=== PATIENT | female | born 1940 | race Caucasian/White ===

== ENCOUNTER 2024-07-30 20:14 | Inpatient (IN) | payer MEDICARE, SELFPAY ==
[2024-07-30] MEDS ORDERED: Ipratropium/Albuterol 3 ML NEB NEB PRN (23:56)
[2024-07-30] MEDS ORDERED: Ondansetron ODT 4 MG TAB PO PRN (23:56)
[2024-07-30] MEDS ORDERED: Ondansetron PF 4 MG/2 ML Vial IVP PRN (23:56)
[2024-07-30] MEDS ORDERED: Acetaminophen 650 MG Suppository PR PRN (23:56)
[2024-07-31 00:41] VITALS: BMI 20.5
[2024-07-31 00:43] LABS: #Basophils 0.04 10x3/uL (0.0-0.2); %Basophils 1.1 % (0.0-1.0); %Eosinophils 3.4 % (0.0-10.0); %Lymphocytes 12.7 % (21.0-51.0); %Neutrophils 62.7 % (42.0-75.0); Hematocrit 38.6 % (36.0-47.0); Hemoglobin 11.9 g/dL (12.0-16.0); Mean Corpuscular HGB CONC 30.8 g/dL (32.0-36.0); Mean Corpuscular Hemoglobin 29.2 pg (27.0-31.0); Mean Corpuscular Volume 94.8 fL (78.0-98.0); Mean Platelet Volume 9.7 fL (7.4-10.4); Platelet Count 182 10x3/uL (130-400); RBC Distribution Width 14.9 % (11.5-14.5); Red Blood Cell (RBC) Count 4.07 mill/uL (4.20-5.40)
[2024-07-31 01:02] LABS: ALT (SGPT) 18 U/L (8-55); AST (SGOT) 45 U/L (5-34); Albumin 3.5 g/dL (3.4-4.8); Alkaline Phosphatase 67 U/L (40-110); Anion Gap 14 mmol/L (10-20); BUN (Urea Nitrogen) 27 mg/dL (9.8-20.1); Bilirubin, Total 0.4 mg/dL (0.2-1.2); Calc. Creatinine Clearance 25 mL/min (70-130); Carbon Dioxide 24 mmol/L (23-31); Chloride 108 mmol/L (98-107); Estimated GFR 42; Globulin 2.8 g/dL (2.4-3.5); Glucose 111 mg/dL (83-110); Potassium 4.2 mmol/L (3.5-5.1); Protein, Total 6.3 g/dL (5.8-8.1); Sodium 142 mmol/L (136-145)
[2024-07-31] MEDS: Acetaminophen 325 MG TAB PO SCH (01:10)
[2024-07-31 01:57] LABS: Legionella Urinary Ag Negative (Negative)
[2024-07-31 01:58] LABS: Strep pneumo Urine Ag NEGATIVE (NEGATIVE)
[2024-07-31] MEDS ORDERED: Amlodipine 10 MG TAB PO SCH (09:00)
[2024-07-31] MEDS ORDERED: cefTRIAXone\\ROCEPHIN 1 GM in Sodium Chloride 0.9% 100 ML IVPB SCH (09:00)
[2024-07-31] MEDS: Doxycycline 100 MG CAP PO SCH (09:02)
[2024-07-31] MEDS: Apixaban 2.5 MG TAB PO SCH (09:02)
[2024-07-31] MEDS: Famotidine 20 MG TAB PO SCH (09:03)
[2024-07-31] MEDS: Amlodipine 5 MG TAB PO SCH (09:03)
[2024-07-31] MEDS: Venlafaxine HCl XR 150 MG CAP PO SCH (09:03)
[2024-07-31] MEDS: Gabapentin 300 MG CAP PO SCH (09:03)
[2024-07-31] MEDS: Cyanocobalamin (Vitamin B-12) 1,000 MCG TAB PO SCH (09:03)
[2024-07-31] MEDS: Famotidine/PF 20 mg/2ml Vial SLOW IVP SCH (09:04)
[2024-07-31] MEDS: Lactated Ringer's 1,000 ML IV SCH (14:53)
[2024-07-31 19:18] VITALS: BMI 20.5
[2024-07-31] MEDS: buPROPion 75 MG TAB PO SCH (21:08)
[2024-07-31] MEDS: Pantoprazole DR 40 MG TAB PO SCH (21:08)
[2024-08-01] MEDS: Losartan 25 MG TAB PO SCH (08:49)
[2024-08-01] MEDS: Multivit, Therapeutic 1 TAB PO SCH (08:49)
[2024-08-01] MEDS: Baclofen 10 MG TAB PO SCH (08:50)
[2024-08-01] MEDS: Floranex 1 GM Packet PO SCH (08:51)
[2024-08-01] MEDS ORDERED: NIACINAMIDE PO SCH (09:00)
[2024-08-01] MEDS ORDERED: CRANBERRY FRUIT EXTRACT 425 MG PO SCH (09:00)
[2024-08-01 10:51] LABS: #Basophils 0.03 10x3/uL (0.0-0.2); %Basophils 0.8 % (0.0-1.0); %Eosinophils 3.9 % (0.0-10.0); %Lymphocytes 11.9 % (21.0-51.0); %Monocytes 16.9 % (0.0-10.0); %Neutrophils 63.7 % (42.0-75.0); Hematocrit 37.6 % (36.0-47.0); Hemoglobin 11.6 g/dL (12.0-16.0); Mean Corpuscular HGB CONC 30.9 g/dL (32.0-36.0); Mean Corpuscular Hemoglobin 28.7 pg (27.0-31.0); Mean Corpuscular Volume 93.1 fL (78.0-98.0); Platelet Count 172 10x3/uL (130-400); RBC Distribution Width 15.1 % (11.5-14.5); Red Blood Cell (RBC) Count 4.04 mill/uL (4.20-5.40)
[2024-08-01 11:10] LABS: Anion Gap 13 mmol/L (10-20); BUN (Urea Nitrogen) 22 mg/dL (9.8-20.1); Calc. Creatinine Clearance 21 mL/min (70-130); Calcium 9.3 mg/dL (7.8-10.44); Carbon Dioxide 27 mmol/L (23-31); Chloride 105 mmol/L (98-107); Estimated GFR 34; Glucose 144 mg/dL (83-110); Potassium 3.7 mmol/L (3.5-5.1); Sodium 141 mmol/L (136-145)
[2024-08-01] MEDS: Lactated Ringer's 1,000 ML IV SCH (18:08)
[2024-08-01] MEDS: LevoFLOXacin 500 mg/D5W 500 MG in Premix 1 BAG IVPB SCH (20:13)
[2024-08-02 04:43] LABS: Anion Gap 12 mmol/L (10-20); BUN (Urea Nitrogen) 26 mg/dL (9.8-20.1); Calc. Creatinine Clearance 27 mL/min (70-130); Calcium 9.7 mg/dL (7.8-10.44); Carbon Dioxide 26 mmol/L (23-31); Chloride 106 mmol/L (98-107); Estimated GFR 46; Glucose 74 mg/dL (83-110); Potassium 3.6 mmol/L (3.5-5.1); Sodium 140 mmol/L (136-145)
[2024-08-02 04:56] LABS: Hematocrit 35.3 % (36.0-47.0); Hemoglobin 11.1 g/dL (12.0-16.0); Mean Corpuscular HGB CONC 31.4 g/dL (32.0-36.0); Mean Corpuscular Hemoglobin 28.8 pg (27.0-31.0); Mean Corpuscular Volume 91.7 fL (78.0-98.0); Mean Platelet Volume 10.1 fL (7.4-10.4); Platelet Count 159 10x3/uL (130-400); RBC Distribution Width 15.1 % (11.5-14.5); Red Blood Cell (RBC) Count 3.85 mill/uL (4.20-5.40)
[2024-08-02 05:45] LABS: Band 5 % (5-11); Eosinophils 3 % (0-10); Lymphocytes 14 % (21-51); Microcytosis SLIGHT = 6-15 cells HPF (0-5); Monocytes 8 % (0-10); Neutrophil 67 % (42-75); Platelet Adequacy Comment Platelets Normal; Polychromasia SLIGHT = 2-3 cells HPF (0-2)
[2024-08-02] MEDS ORDERED: ANTIBIOTICS IVPB PRN (13:19)
[2024-08-03 07:04] LABS: Anion Gap 11 mmol/L (10-20); BUN (Urea Nitrogen) 26 mg/dL (9.8-20.1); Calc. Creatinine Clearance 27 mL/min (70-130); Calcium 9.1 mg/dL (7.8-10.44); Carbon Dioxide 29 mmol/L (23-31); Chloride 104 mmol/L (98-107); Estimated GFR 45; Glucose 87 mg/dL (83-110); Potassium 3.4 mmol/L (3.5-5.1); Sodium 141 mmol/L (136-145)
[2024-08-03 07:21] LABS: Hematocrit 35.9 % (36.0-47.0); Hemoglobin 11.3 g/dL (12.0-16.0); Mean Corpuscular HGB CONC 31.5 g/dL (32.0-36.0); Mean Corpuscular Hemoglobin 28.8 pg (27.0-31.0); Mean Corpuscular Volume 91.3 fL (78.0-98.0); Mean Platelet Volume 9.9 fL (7.4-10.4); Platelet Count 149 10x3/uL (130-400); RBC Distribution Width 15.3 % (11.5-14.5); Red Blood Cell (RBC) Count 3.93 mill/uL (4.20-5.40)
[2024-08-03 08:16] LABS: Band 7 % (5-11); Eosinophils 6 % (0-10); Large Platelets 3.7 % (0-5); Lymphocytes 10 % (21-51); Metamyelocyte 2 % (0-0); Monocytes 14 % (0-10); Neutrophil 59 % (42-75); Platelet Adequacy Comment Platelets Normal; RBC Morphology Within Normal Limits; Reactive Lymphocytes 1 % (0-10)
[2024-08-03] MEDS: Potassium Bicarbonate/Cit Ac 20 MEQ TAB PO SCH (13:10)
[2024-08-04 05:07] LABS: Hematocrit 35.8 % (36.0-47.0); Hemoglobin 11.2 g/dL (12.0-16.0); Mean Corpuscular HGB CONC 31.3 g/dL (32.0-36.0); Mean Corpuscular Hemoglobin 27.9 pg (27.0-31.0); Mean Corpuscular Volume 89.3 fL (78.0-98.0); Mean Platelet Volume 10.6 fL (7.4-10.4); Platelet Count 153 10x3/uL (130-400); RBC Distribution Width 15.2 % (11.5-14.5); Red Blood Cell (RBC) Count 4.01 mill/uL (4.20-5.40)
[2024-08-04 05:59] LABS: Band 4 % (5-11); Eosinophils 1 % (0-10); Hypochromia SLIGHT = 6-15 cells HPF (0-5); Large Platelets 3.8 % (0-5); Lymphocytes 8 % (21-51); Metamyelocyte 3 % (0-0); Monocytes 17 % (0-10); Myelocyte 2 % (0-0); Neutrophil 63 % (42-75); Platelet Adequacy Comment Platelets Normal; Smudge Cells 18.3 %
[2024-08-04 06:10] LABS: Anion Gap 11 mmol/L (10-20); BUN (Urea Nitrogen) 26 mg/dL (9.8-20.1); Calc. Creatinine Clearance 23 mL/min (70-130); Calcium 8.9 mg/dL (7.8-10.44); Carbon Dioxide 29 mmol/L (23-31); Chloride 103 mmol/L (98-107); Estimated GFR 37; Glucose 95 mg/dL (83-110); Potassium 3.8 mmol/L (3.5-5.1); Sodium 139 mmol/L (136-145)
[2024-08-04] MEDS: Furosemide 40 MG (4 mL) VIAL SLOW IVP SCH (14:25)
[2024-08-05 06:05] LABS: Hematocrit 38.5 % (36.0-47.0); Hemoglobin 12.2 g/dL (12.0-16.0); Mean Corpuscular HGB CONC 31.7 g/dL (32.0-36.0); Mean Corpuscular Hemoglobin 28.9 pg (27.0-31.0); Mean Corpuscular Volume 91.2 fL (78.0-98.0); Mean Platelet Volume 10.4 fL (7.4-10.4); Platelet Count 163 10x3/uL (130-400); RBC Distribution Width 15.6 % (11.5-14.5); Red Blood Cell (RBC) Count 4.22 mill/uL (4.20-5.40)
[2024-08-05 06:12] LABS: Anion Gap 14 mmol/L (10-20); BUN (Urea Nitrogen) 37 mg/dL (9.8-20.1); Calc. Creatinine Clearance 20 mL/min (70-130); Calcium 9.1 mg/dL (7.8-10.44); Carbon Dioxide 31 mmol/L (23-31); Chloride 100 mmol/L (98-107); Estimated GFR 32; Glucose 96 mg/dL (83-110); Potassium 3.5 mmol/L (3.5-5.1); Sodium 141 mmol/L (136-145)
[2024-08-05 06:52] LABS: Anisocytosis SLIGHT = 6-15 cells HPF (0-5); Band 3 % (5-11); Eosinophils 2 % (0-10); Lymphocytes 10 % (21-51); Macrocytosis SLIGHT = 6-15 cells HPF (0-5); Metamyelocyte 3 % (0-0); Monocytes 14 % (0-10); Myelocyte 1 % (0-0); Neutrophil 61 % (42-75); Platelet Adequacy Comment Platelets Normal; Polychromasia SLIGHT = 2-3 cells HPF (0-2); Reactive Lymphocytes 4 % (0-10)
[2024-08-05 08:05] VITALS: BP 141/76; TEMP 97.8
[2024-08-05] MEDS ORDERED: LevoFLOXacin 500 MG TAB PO SCH (21:00)
== END 2024-08-05 13:33 | disposition home or self-care (01) | DRG 193 ==
LOC: T4-A 23:40
PROVIDERS: ADMIT Student in an Organized Health Care Education/Training Program; ATTEND Internal Medicine
DX: J18.9 Pneumonia, unspecified organism (principal); J96.01 Acute respiratory failure with hypoxia; I48.91 Unspecified atrial fibrillation; M19.90 Unspecified osteoarthritis, unspecified site; I12.9 Hypertensive chronic kidney disease with stage 1 through stage 4 chronic kidney disease, or unspecified chronic kidney disease; G25.3 Myoclonus; M62.838 Other muscle spasm; Z88.1 Allergy status to other antibiotic agents; Z79.01 Long term (current) use of anticoagulants
CPT/HCPCS: 36415; 71045; 80048; 80053; 83880; 84145; 85025; 87449; 87899; J1940; J1956; J7120

== ENCOUNTER 2024-08-07 20:09 | Inpatient (IN) | payer MEDICARE ==
[2024-08-07 21:13] LABS: Hematocrit 38.1 % (36.0-47.0); Hemoglobin 11.8 g/dL (12.0-16.0); Mean Corpuscular Hemoglobin 29.1 pg (27.0-31.0); Mean Corpuscular Volume 94.1 fL (78.0-98.0); Mean Platelet Volume 10.2 fL (7.4-10.4); Platelet Count 151 10x3/uL (130-400); RBC Distribution Width 16.2 % (11.5-14.5); Red Blood Cell (RBC) Count 4.05 mill/uL (4.20-5.40)
[2024-08-07 21:34] LABS: Band 13 % (5-11); Eosinophils 3 % (0-10); Large Platelets 4.9 % (0-5); Lymphocytes 12 % (21-51); Macrocytosis SLIGHT = 6-15 cells HPF (0-5); Monocytes 15 % (0-10); Neutrophil 57 % (42-75); Platelet Adequacy Comment Platelets Normal; Polychromasia SLIGHT = 2-3 cells HPF (0-2); Smudge Cells 16.5 %; Tear Drops SLIGHT = 2-5 cells HPF (0-1)
[2024-08-07 21:35] LABS: ALT (SGPT) 19 U/L (8-55); AST (SGOT) 48 U/L (5-34); Albumin 3.4 g/dL (3.4-4.8); Alkaline Phosphatase 79 U/L (40-110); Anion Gap 22 mmol/L (10-20); BUN (Urea Nitrogen) 57 mg/dL (9.8-20.1); Bilirubin, Total 0.3 mg/dL (0.2-1.2); Calc. Creatinine Clearance 0 mL/min (70-130); Carbon Dioxide 22 mmol/L (23-31); Chloride 102 mmol/L (98-107); Estimated GFR 22; Globulin 2.7 g/dL (2.4-3.5); Glucose 122 mg/dL (83-110); Potassium 3.5 mmol/L (3.5-5.1); Protein, Total 6.1 g/dL (5.8-8.1); Sodium 142 mmol/L (136-145)
[2024-08-07 21:37] LABS: Troponin I 0.023 ng/mL (< 0.028)
[2024-08-08 00:08] VITALS: BMI 22.2
[2024-08-08] MEDS: Apixaban 2.5 MG TAB PO SCH ×2 (00:37→08:36)
[2024-08-08] MEDS: Sodium Chloride 0.9% 1,000 ML IV SCH (00:37)
[2024-08-08 04:47] LABS: #Basophils 0.06 10x3/uL (0.0-0.2); %Basophils 1.1 % (0.0-1.0); %Eosinophils 3.7 % (0.0-10.0); %Monocytes 19.6 % (0.0-10.0); %Neutrophils 60.4 % (42.0-75.0); Hematocrit 34.4 % (36.0-47.0); Hemoglobin 10.8 g/dL (12.0-16.0); Mean Corpuscular HGB CONC 31.4 g/dL (32.0-36.0); Mean Corpuscular Volume 92.2 fL (78.0-98.0); Mean Platelet Volume 10.6 fL (7.4-10.4); Platelet Count 153 10x3/uL (130-400); Red Blood Cell (RBC) Count 3.73 mill/uL (4.20-5.40)
[2024-08-08 05:36] LABS: Anion Gap 17 mmol/L (10-20); BUN (Urea Nitrogen) 57 mg/dL (9.8-20.1); Calc. Creatinine Clearance 16 mL/min (70-130); Calcium 8.7 mg/dL (7.8-10.44); Carbon Dioxide 27 mmol/L (23-31); Chloride 104 mmol/L (98-107); Estimated GFR 23; Glucose 81 mg/dL (83-110); Potassium 3.4 mmol/L (3.5-5.1); Sodium 145 mmol/L (136-145)
[2024-08-08] MEDS: Baclofen 10 MG TAB PO SCH (13:18)
[2024-08-08] MEDS: Amlodipine 10 MG TAB PO SCH (13:18)
[2024-08-08] MEDS: Venlafaxine HCl XR 150 MG CAP PO SCH (13:19)
[2024-08-08] MEDS: Gabapentin 300 MG CAP PO SCH ×2 (13:19→21:22)
[2024-08-08] MEDS: Saccharomyces boulardii 250 MG CAP PO SCH (13:20)
[2024-08-08] MEDS: Cyanocobalamin (Vitamin B-12) 1,000 MCG TAB PO SCH (13:20)
[2024-08-08] MEDS: buPROPion 75 MG TAB PO SCH ×2 (13:21→21:23)
[2024-08-08 13:50] LABS: Bacteria/HPF None Seen HPF (None Seen); Bilirubin Negative (Negative); Blood, Urine Negative (Negative); CAUTI Indications for Culture Alt mental st,lethar; Clarity Clear (Clear); Glucose, Urine (Dipstick) Normal (Negative); Ketone, Urine Negative (Negative); Leukocyte Negative Leu/uL (Negative); Nitrite Negative (Negative); Protein, Urine (Dipstick) 30 mg/dL (Neg-Trace); RBC/HPF None Seen HPF (0-3); Specific Gravity, Urine 1.014 (1.002-1.036); Squamous Epithelial None Seen HPF (0-3); Urobilinogen Normal mg/dL (Less than 2); WBC/HPF 0-3 HPF (0-3)
[2024-08-08 14:11] LABS: Urine Culture Reflex No No
[2024-08-08] MEDS: Acetaminophen 325 MG TAB PO PRN (21:21)
[2024-08-09 04:58] LABS: Anion Gap 11 mmol/L (10-20); BUN (Urea Nitrogen) 38 mg/dL (9.8-20.1); Calc. Creatinine Clearance 26 mL/min (70-130); Calcium 8.7 mg/dL (7.8-10.44); Carbon Dioxide 28 mmol/L (23-31); Chloride 109 mmol/L (98-107); Estimated GFR 39; Glucose 79 mg/dL (83-110); Potassium 3.8 mmol/L (3.5-5.1); Sodium 144 mmol/L (136-145)
[2024-08-09 05:09] LABS: Hematocrit 32.8 % (36.0-47.0); Hemoglobin 10.5 g/dL (12.0-16.0); Mean Corpuscular Hemoglobin 28.5 pg (27.0-31.0); Mean Corpuscular Volume 89.1 fL (78.0-98.0); Mean Platelet Volume 9.8 fL (7.4-10.4); Platelet Count 146 10x3/uL (130-400); RBC Distribution Width 16.3 % (11.5-14.5); Red Blood Cell (RBC) Count 3.68 mill/uL (4.20-5.40)
[2024-08-09 06:45] LABS: Band 5 % (5-11); Eosinophils 4 % (0-10); Lymphocytes 16 % (21-51); Macrocytosis SLIGHT = 6-15 cells HPF (0-5); Metamyelocyte 1 % (0-0); Monocytes 12 % (0-10); Neutrophil 63 % (42-75); Platelet Adequacy Comment Platelets Normal; Polychromasia SLIGHT = 2-3 cells HPF (0-2); Smudge Cells 9.7 %
[2024-08-09] MEDS: Amlodipine 10 MG TAB PO SCH (08:17)
[2024-08-09] MEDS: Venlafaxine HCl XR 150 MG CAP PO SCH (08:18)
[2024-08-09] MEDS: Saccharomyces boulardii 250 MG CAP PO SCH (08:19)
[2024-08-09] MEDS: Baclofen 10 MG TAB PO SCH (08:19)
[2024-08-09] MEDS: Cyanocobalamin (Vitamin B-12) 1,000 MCG TAB PO SCH (08:19)
[2024-08-09] MEDS: Multivitamin W/ Minerals 1 TAB PO SCH (08:34)
[2024-08-09 08:36] VITALS: TEMP 98.3
[2024-08-09 11:08] VITALS: BP 160/80
[2024-08-10] MEDS ORDERED: FLU (Fluad Triv) TS24-25 (65UP)/MF59C/PF 45 MCG/0.5 ML Syringe IM ONE (09:00)
== END 2024-08-09 11:55 | disposition home or self-care (01) | DRG 682 ==
LOC: ERS 20:09 → 2SW 22:53 → OBSVTOIN 08-08 09:14
PROVIDERS: ADMIT Internal Medicine; ATTEND Family Medicine
DX: N17.9 Acute kidney failure, unspecified (principal); G93.41 Metabolic encephalopathy; J96.01 Acute respiratory failure with hypoxia; I48.20 Chronic atrial fibrillation, unspecified; E87.6 Hypokalemia; Z79.01 Long term (current) use of anticoagulants; Z88.8 Allergy status to other drugs, medicaments and biological substances; N18.30 Chronic kidney disease, stage 3 unspecified; I12.9 Hypertensive chronic kidney disease with stage 1 through stage 4 chronic kidney disease, or unspecified chronic kidney disease; M19.90 Unspecified osteoarthritis, unspecified site; D63.1 Anemia in chronic kidney disease; Z90.710 Acquired absence of both cervix and uterus; Z90.49 Acquired absence of other specified parts of digestive tract; Z98.890 Other specified postprocedural states; Z82.49 Family history of ischemic heart disease and other diseases of the circulatory system; Z79.899 Other long term (current) drug therapy
CPT/HCPCS: 36415; 70450; 71045; 80048; 80053; 81001; 83880; 84484; 85025; 93005; 93306; G0378; J7030

== ENCOUNTER 2024-09-03 08:48 | Inpatient (IN) | payer MEDICARE ==
[2024-09-03] MEDS ORDERED: Ondansetron PF 4 MG/2 ML Vial IVP PRN (11:12)
[2024-09-03] MEDS ORDERED: Senokot S 8.6-50 MG TAB PO PRN (11:12)
[2024-09-03 12:00] LABS: Albumin 2.2 g/dL (3.4-4.8); Anion Gap 14 mmol/L (10-20); BUN (Urea Nitrogen) 23 mg/dL (9.8-20.1); BUN/Creatinine Ratio 11.62; Calc. Creatinine Clearance 23 mL/min (70-130); Calcium 8.6 mg/dL (7.8-10.44); Carbon Dioxide 19 mmol/L (23-31); Chloride 107 mmol/L (98-107); Estimated GFR 25; Glucose 63 mg/dL (83-110); Phosphorus 3.6 mg/dL (2.3-4.7); Potassium 3.9 mmol/L (3.5-5.1); Sodium 136 mmol/L (136-145)
[2024-09-03] MEDS: FLU (Fluad Triv) TS24-25 (65UP)/MF59C/PF 45 MCG/0.5 ML Syringe IM ONE (12:20)
[2024-09-03 12:28] LABS: Bilirubin Negative (Negative); Blood, Urine Negative (Negative); Glucose, Urine (Dipstick) Negative (Negative); Ketone, Urine Negative (Negative); Leukocyte Negative (Negative); Nitrite Negative (Negative); Protein, Urine (Dipstick) Negative (Neg-Trace); Specific Gravity, Urine 1.025 (1.005-1.030); Urobilinogen 0.2 mg/dL (Less than 2)
[2024-09-03 12:38] LABS: RBC/HPF 0-3 HPF (0-3); Squamous Epithelial 0-3 HPF (0-3); Yeast-Budding 1+ HPF (None Seen)
[2024-09-03] MEDS: Sodium Bicarbonate 50 MEQ in Dextrose 5% in Water 1,000 ML IV SCH (12:44)
[2024-09-03 12:45] LABS: Clarity Clear (Clear)
[2024-09-03 13:07] LABS: Bacteria/HPF Rare-Few HPF (None Seen)
[2024-09-03 13:11] LABS: Creatinine, Urine 47.17 mg/dL (47-110)
[2024-09-03] MEDS: Albumin 25% 25 GM (100 mL) BOT IVPB SCH ×2 (13:22→16:52)
[2024-09-03] MEDS ORDERED: FLU (Fluad Triv) TS24-25 (65UP)/MF59C/PF 45 MCG/0.5 ML Syringe IM ONE (13:30)
[2024-09-03] MEDS: Heparin 5,000 UNITS/ML VIAL SC SCH (15:12)
[2024-09-04 06:06] LABS: Anion Gap 13 mmol/L (10-20); BUN (Urea Nitrogen) 21 mg/dL (9.8-20.1); Calc. Creatinine Clearance 24 mL/min (70-130); Calcium 8.7 mg/dL (7.8-10.44); Carbon Dioxide 21 mmol/L (23-31); Chloride 108 mmol/L (98-107); Estimated GFR 26; Glucose 76 mg/dL (83-110); Potassium 3.4 mmol/L (3.5-5.1); Sodium 139 mmol/L (136-145)
[2024-09-04 06:16] LABS: Hematocrit 28.6 % (36.0-47.0); Hemoglobin 9.1 g/dL (12.0-16.0); Mean Corpuscular HGB CONC 31.8 g/dL (32.0-36.0); Mean Corpuscular Hemoglobin 28.4 pg (27.0-31.0); Mean Corpuscular Volume 89.4 fL (78.0-98.0); Platelet Count 133 10x3/uL (130-400); RBC Distribution Width 19.6 % (11.5-14.5)
[2024-09-04 07:20] LABS: Anisocytosis SLIGHT = 6-15 cells HPF (0-5); Band 15 % (5-11); Eosinophils 2 % (0-10); Large Platelets 5.9 % (0-5); Lymphocytes 9 % (21-51); Macrocytosis SLIGHT = 6-15 cells HPF (0-5); Metamyelocyte 2 % (0-0); Monocytes 11 % (0-10); Myelocyte 2 % (0-0); Neutrophil 56 % (42-75); Platelet Adequacy Comment Platelets Decreased; Polychromasia SLIGHT = 2-3 cells HPF (0-2); Smudge Cells 12.9 %
[2024-09-04] MEDS: Potassium Bicarbonate/Cit Ac 20 MEQ TAB PO SCH (08:19)
[2024-09-04 11:04] LABS: Iron 45 ug/dL (50-170); Iron Binding Capacity, Total 123 mcg/dL (265-497); Magnesium 1.3 mg/dL (1.6-2.6)
[2024-09-04 13:35] LABS: ANA Symphony (Qualitative) Negative (Negative); ANA Symphony (Quantitative) 0.3 Ratio (< 0.7 Negative)
[2024-09-04] MEDS: Magnesium Sulfate In Water 4 GM in Premix 1 BAG IVPB SCH (14:15)
[2024-09-04] MEDS: Sodium Bicarbonate 150 MEQ in Dextrose 5% in Water 1,000 ML IV SCH (14:17)
[2024-09-04] MEDS: Albumin 25% 25 GM (100 mL) BOT IVPB SCH (17:31)
[2024-09-05 05:42] LABS: Hematocrit 28.8 % (36.0-47.0); Hemoglobin 9.3 g/dL (12.0-16.0); Mean Corpuscular HGB CONC 32.3 g/dL (32.0-36.0); Mean Corpuscular Volume 89.7 fL (78.0-98.0); Mean Platelet Volume 10.2 fL (7.4-10.4); Platelet Count 122 10x3/uL (130-400); RBC Distribution Width 20.1 % (11.5-14.5); Red Blood Cell (RBC) Count 3.21 mill/uL (4.20-5.40)
[2024-09-05 06:23] LABS: ALT (SGPT) 6 U/L (8-55); AST (SGOT) 65 U/L (5-34); Alkaline Phosphatase 41 U/L (40-110); Anion Gap 13 mmol/L (10-20); BUN (Urea Nitrogen) 17 mg/dL (9.8-20.1); Bilirubin, Total 0.8 mg/dL (0.2-1.2); Calc. Creatinine Clearance 27 mL/min (70-130); Calcium 8.6 mg/dL (7.8-10.44); Carbon Dioxide 24 mmol/L (23-31); Chloride 104 mmol/L (98-107); Estimated GFR 30; Globulin 1.2 g/dL (2.4-3.5); Glucose 95 mg/dL (83-110); Magnesium 2.2 mg/dL (1.6-2.6); Potassium 3.2 mmol/L (3.5-5.1); Protein, Total 5.2 g/dL (5.8-8.1); Sodium 138 mmol/L (136-145)
[2024-09-05 06:24] LABS: Anisocytosis SLIGHT = 6-15 cells HPF (0-5); Band 10 % (5-11); Eosinophils 3 % (0-10); Hypochromia SLIGHT = 6-15 cells HPF (0-5); Lymphocytes 13 % (21-51); Metamyelocyte 2 % (0-0); Monocytes 20 % (0-10); Neutrophil 50 % (42-75); Platelet Adequacy Comment Platelets Decreased; Polychromasia SLIGHT = 2-3 cells HPF (0-2); Reactive Lymphocytes 3 % (0-10); Smudge Cells 9.8 %
[2024-09-05] MEDS: Potassium Chloride 20 MEQ TAB PO SCH (10:10)
[2024-09-06 05:19] LABS: Anion Gap 17 mmol/L (10-20); BUN (Urea Nitrogen) 14 mg/dL (9.8-20.1); Calc. Creatinine Clearance 33 mL/min (70-130); Calcium 9.1 mg/dL (7.8-10.44); Carbon Dioxide 25 mmol/L (23-31); Chloride 104 mmol/L (98-107); Estimated GFR 38; Glucose 89 mg/dL (83-110); Potassium 4.7 mmol/L (3.5-5.1); Sodium 141 mmol/L (136-145)
[2024-09-06 06:03] LABS: Hematocrit 34.9 % (36.0-47.0); Hemoglobin 11.1 g/dL (12.0-16.0); Mean Corpuscular HGB CONC 31.8 g/dL (32.0-36.0); Mean Corpuscular Hemoglobin 28.6 pg (27.0-31.0); Mean Corpuscular Volume 89.9 fL (78.0-98.0); Mean Platelet Volume 11.2 fL (7.4-10.4); Platelet Count 119 10x3/uL (130-400); RBC Distribution Width 21.2 % (11.5-14.5); Red Blood Cell (RBC) Count 3.88 mill/uL (4.20-5.40)
[2024-09-06 09:11] LABS: Band 8 % (5-11); Eosinophils 2 % (0-10); Hypochromia SLIGHT = 6-15 cells HPF (0-5); Lymphocytes 11 % (21-51); Metamyelocyte 2 % (0-0); Monocytes 9 % (0-10); Neutrophil 64 % (42-75); Platelet Adequacy Comment Platelets Decreased; Polychromasia SLIGHT = 2-3 cells HPF (0-2); Reactive Lymphocytes 5 % (0-10); Schistocytes SLIGHT = 2-5 cells HPF (0-1)
[2024-09-06] MEDS: Spironolactone 25 MG TAB PO SCH (09:29)
[2024-09-06] MEDS: Torsemide 10 MG TAB PO SCH (09:30)
[2024-09-06] MEDS: Guaifenesin DM 100-10/5 ML UDCUP PO PRN (09:41)
[2024-09-06] MEDS: Apixaban 2.5 MG TAB PO SCH (20:39)
[2024-09-06] MEDS ORDERED: Apixaban 2.5 MG TAB PO SCH (21:00)
[2024-09-07 06:07] LABS: Phosphorus 2.7 mg/dL (2.3-4.7)
[2024-09-07 06:19] LABS: ALT (SGPT) 5 U/L (8-55); AST (SGOT) 56 U/L (5-34); Albumin 3.6 g/dL (3.4-4.8); Alkaline Phosphatase 53 U/L (40-110); Anion Gap 16 mmol/L (10-20); BUN (Urea Nitrogen) 14 mg/dL (9.8-20.1); Bilirubin, Total 0.9 mg/dL (0.2-1.2); Calc. Creatinine Clearance 38 mL/min (70-130); Carbon Dioxide 26 mmol/L (23-31); Chloride 101 mmol/L (98-107); Estimated GFR 46; Globulin 1.7 g/dL (2.4-3.5); Glucose 89 mg/dL (83-110); Magnesium 1.7 mg/dL (1.6-2.6); Potassium 4.2 mmol/L (3.5-5.1); Protein, Total 5.3 g/dL (5.8-8.1); Sodium 139 mmol/L (136-145)
[2024-09-07] MEDS: Magnesium 2 GM/50 ML(in water) 2 GM in Premix 1 BAG IVPB SCH (08:43)
[2024-09-07] MEDS: Magnesium Oxide 400 MG TAB PO SCH (08:43)
[2024-09-07 12:42] LABS: CCP IgG Antibody 0.9 EliAU/mL (<7 Negative); EliA RAS New Method **** NEW METHOD ****
[2024-09-07] MEDS: Acetaminophen 325 MG TAB PO PRN (21:34)
[2024-09-08 07:59] LABS: Albumin 3.5 g/dL (3.4-4.8); Anion Gap 16 mmol/L (10-20); BUN (Urea Nitrogen) 15 mg/dL (9.8-20.1); BUN/Creatinine Ratio 13.39; Calc. Creatinine Clearance 40 mL/min (70-130); Calcium 9.4 mg/dL (7.8-10.44); Carbon Dioxide 30 mmol/L (23-31); Chloride 98 mmol/L (98-107); Estimated GFR 49; Glucose 84 mg/dL (83-110); Magnesium 1.8 mg/dL (1.6-2.6); Phosphorus 3.1 mg/dL (2.3-4.7); Potassium 4.7 mmol/L (3.5-5.1); Sodium 139 mmol/L (136-145)
[2024-09-09 05:12] LABS: Albumin 3.5 g/dL (3.4-4.8); Anion Gap 16 mmol/L (10-20); BUN (Urea Nitrogen) 15 mg/dL (9.8-20.1); BUN/Creatinine Ratio 15.46; Calc. Creatinine Clearance 47 mL/min (70-130); Calcium 9.5 mg/dL (7.8-10.44); Carbon Dioxide 29 mmol/L (23-31); Chloride 97 mmol/L (98-107); Estimated GFR 58; Glucose 78 mg/dL (83-110); Phosphorus 3.4 mg/dL (2.3-4.7); Potassium 3.8 mmol/L (3.5-5.1); Sodium 138 mmol/L (136-145)
[2024-09-09] MEDS: Spironolactone 25 MG TAB PO SCH (09:43)
[2024-09-09] MEDS: buPROPion 75 MG TAB PO SCH (19:49)
[2024-09-09] MEDS: Gabapentin 300 MG CAP PO SCH (19:49)
[2024-09-09] MEDS: Pantoprazole DR 40 MG TAB PO SCH (19:49)
[2024-09-09] MEDS ORDERED: buPROPion 75 MG TAB PO SCH (21:00)
[2024-09-09] MEDS ORDERED: Non-Formulary Item 1 EACH (Omeprazole Magnesium [Prilosec Otc] 20 MG Tab) PO SCH (21:00)
[2024-09-10 05:27] LABS: Anion Gap 18 mmol/L (10-20); BUN (Urea Nitrogen) 15 mg/dL (9.8-20.1); Calc. Creatinine Clearance 42 mL/min (70-130); Calcium 9.5 mg/dL (7.8-10.44); Carbon Dioxide 31 mmol/L (23-31); Chloride 94 mmol/L (98-107); Estimated GFR 50; Glucose 74 mg/dL (83-110); Magnesium 1.6 mg/dL (1.6-2.6); Potassium 3.6 mmol/L (3.5-5.1); Sodium 139 mmol/L (136-145)
[2024-09-10 05:30] LABS: Hematocrit 37.5 % (36.0-47.0); Hemoglobin 11.6 g/dL (12.0-16.0); Mean Corpuscular HGB CONC 30.9 g/dL (32.0-36.0); Mean Corpuscular Hemoglobin 29.2 pg (27.0-31.0); Mean Corpuscular Volume 94.5 fL (78.0-98.0); Mean Platelet Volume 9.6 fL (7.4-10.4); Platelet Count 137 10x3/uL (130-400); RBC Distribution Width 21.1 % (11.5-14.5); Red Blood Cell (RBC) Count 3.97 mill/uL (4.20-5.40)
[2024-09-10 06:13] LABS: Anisocytosis SLIGHT = 6-15 cells HPF (0-5); Band 8 % (5-11); Eosinophils 2 % (0-10); Hypochromia SLIGHT = 6-15 cells HPF (0-5); Lymphocytes 9 % (21-51); Metamyelocyte 2 % (0-0); Monocytes 17 % (0-10); Neutrophil 62 % (42-75); Ovalocytes SLIGHT = 2-5 cells HPF (0-1); Platelet Adequacy Comment Platelets Decreased; Polychromasia SLIGHT = 2-3 cells HPF (0-2); Target Cells SLIGHT = 2-5 cells HPF (0-1)
[2024-09-10] MEDS ORDERED: Venlafaxine HCl XR 150 MG CAP PO SCH (09:00)
[2024-09-10] MEDS ORDERED: [UNRECOGNIZED DRUG - OTHER] PO SCH (09:00)
[2024-09-10] MEDS ORDERED: Non-Formulary Item 1 EACH (Cholecalciferol (Vitamin D3) [Vitamin D3] 5,000 UNITS Capsule) PO SCH (09:00)
[2024-09-10] MEDS ORDERED: Non-Formulary Item 1 EACH (Multivitamin [Multivitamin] 1 EACH Tablet) PO SCH (09:00)
[2024-09-10] MEDS ORDERED: Non-Formulary Item 1 EACH (L.Acidoph,Paracasei, B.Lactis [Probiotic] 1 EACH Capsule) PO SCH (09:00)
[2024-09-10] MEDS ORDERED: Non-Formulary Item 1 EACH (Cyanocobalamin (Vitamin B-12) [Vitamin B12] 2,500 MCG Tablet) PO SCH (09:00)
[2024-09-10] MEDS ORDERED: NIACINAMIDE PO SCH ×2 (09:00)
[2024-09-10] MEDS ORDERED: CRANBERRY FRUIT EXTRACT 425 MG PO SCH (09:00)
[2024-09-10] MEDS: Cyanocobalamin (Vitamin B-12) 1,000 MCG TAB PO SCH (09:09)
[2024-09-10] MEDS: Cholecalciferol 1,000 UNITS (25 MCG) TAB PO SCH (09:10)
[2024-09-10] MEDS: Multivit, Therapeutic 1 TAB PO SCH (09:10)
[2024-09-10] MEDS: Saccharomyces boulardii 250 MG CAP PO SCH (09:11)
[2024-09-10] MEDS: Venlafaxine HCl XR 150 MG CAP PO SCH (09:11)
[2024-09-10] MEDS: Magnesium 2 GM/50 ML(in water) 2 GM in Premix 1 BAG IVPB SCH (09:47)
[2024-09-11 06:42] LABS: #Basophils 0.08 10x3/uL (0.0-0.2); %Eosinophils 6.1 % (0.0-10.0); %Lymphocytes 9.4 % (21.0-51.0); %Monocytes 18.7 % (0.0-10.0); %Neutrophils 62.9 % (42.0-75.0); Hematocrit 36.4 % (36.0-47.0); Hemoglobin 11.3 g/dL (12.0-16.0); Mean Corpuscular Hemoglobin 29.4 pg (27.0-31.0); Mean Corpuscular Volume 94.5 fL (78.0-98.0); Mean Platelet Volume 10.1 fL (7.4-10.4); Platelet Count 158 10x3/uL (130-400); RBC Distribution Width 20.5 % (11.5-14.5); Red Blood Cell (RBC) Count 3.85 mill/uL (4.20-5.40)
[2024-09-11 07:02] LABS: Albumin 3.4 g/dL (3.4-4.8); Anion Gap 17 mmol/L (10-20); BUN (Urea Nitrogen) 21 mg/dL (9.8-20.1); BUN/Creatinine Ratio 13.82; CK (CPK) 21 U/L (29-168); Calc. Creatinine Clearance 26 mL/min (70-130); Calcium 9.7 mg/dL (7.8-10.44); Carbon Dioxide 33 mmol/L (23-31); Chloride 91 mmol/L (98-107); Estimated GFR 34; Glucose 82 mg/dL (83-110); Magnesium 2.1 mg/dL (1.6-2.6); Phosphorus 3.7 mg/dL (2.3-4.7); Potassium 3.6 mmol/L (3.5-5.1); Sodium 137 mmol/L (136-145)
[2024-09-11 07:19] LABS: INR-International Normal Ratio 1.3; Prothrombin Time 16.2 sec (12.0-14.7)
[2024-09-11 07:20] LABS: PTT 37.2 sec (22.9-36.1)
[2024-09-11 10:38] LABS: Albumin 3.3 g/dL (3.4-4.8); Anion Gap 16 mmol/L (10-20); BUN (Urea Nitrogen) 22 mg/dL (9.8-20.1); Calc. Creatinine Clearance 25 mL/min (70-130); Calcium 9.6 mg/dL (7.8-10.44); Carbon Dioxide 34 mmol/L (23-31); Chloride 91 mmol/L (98-107); Estimated GFR 33; Glucose 75 mg/dL (83-110); Phosphorus 3.7 mg/dL (2.3-4.7); Potassium 3.6 mmol/L (3.5-5.1); Sodium 137 mmol/L (136-145)
[2024-09-11 12:18] LABS: Bacteria/HPF 1+ HPF (None Seen); Bilirubin Negative (Negative); Blood, Urine 1+ (Negative); Clarity Turbid (Clear); Glucose, Urine (Dipstick) Normal (Negative); Ketone, Urine Negative (Negative); Leukocyte 500 Leu/uL (Negative); Nitrite Negative (Negative); Protein, Urine (Dipstick) 70 mg/dL (Neg-Trace); Squamous Epithelial None Seen HPF (0-3); Urobilinogen Normal mg/dL (Less than 2); WBC/HPF Greater than 50 HPF (0-3); Yeast-Budding 1+ HPF (None Seen)
[2024-09-11 12:42] LABS: Sodium, Urine 47 mmol/L (Not Available); Urea Nitrogen, Random Urine 423 mg/dl
[2024-09-11 12:43] LABS: Creatinine, Urine 97.96 mg/dL (47-110)
[2024-09-11] MEDS: Albumin 25% 25 GM (100 mL) BOT IVPB SCH ×2 (13:21→20:12)
[2024-09-11 18:37] LABS: ALT (SGPT) 8 U/L (8-55); AST (SGOT) 66 U/L (5-34); Albumin 3.3 g/dL (3.4-4.8); Alkaline Phosphatase 56 U/L (40-110); Bilirubin, Direct 0.2 mg/dL (0.1-0.3); Bilirubin, Total 0.6 mg/dL (0.2-1.2); Protein, Total 5.3 g/dL (5.8-8.1)
[2024-09-11] MEDS: Dextrose 10% in Water 1,000 ML IV SCH (18:56)
[2024-09-11 19:06] VITALS: BMI 25.3
[2024-09-11] MEDS: Dextrose 50% Abboject 50 ML SYRINGE SLOW IVP PRN (20:50)
[2024-09-11 21:03] LABS: #Basophils 0.08 10x3/uL (0.0-0.2); %Basophils 1.1 % (0.0-1.0); %Eosinophils 6.4 % (0.0-10.0); %Lymphocytes 10.6 % (21.0-51.0); %Monocytes 18.3 % (0.0-10.0); %Neutrophils 62.4 % (42.0-75.0); Hematocrit 31.3 % (36.0-47.0); Hemoglobin 9.6 g/dL (12.0-16.0); Mean Corpuscular HGB CONC 30.7 g/dL (32.0-36.0); Mean Corpuscular Hemoglobin 29.2 pg (27.0-31.0); Mean Corpuscular Volume 95.1 fL (78.0-98.0); Mean Platelet Volume 10.6 fL (7.4-10.4); Platelet Count 157 10x3/uL (130-400); RBC Distribution Width 20.4 % (11.5-14.5); Red Blood Cell (RBC) Count 3.29 mill/uL (4.20-5.40)
[2024-09-11 21:22] LABS: ALT (SGPT) 9 U/L (8-55); AST (SGOT) 91 U/L (5-34); Albumin 3.9 g/dL (3.4-4.8); Alkaline Phosphatase 45 U/L (40-110); Anion Gap 16 mmol/L (10-20); BUN (Urea Nitrogen) 21 mg/dL (9.8-20.1); Bilirubin, Total 0.6 mg/dL (0.2-1.2); Calc. Creatinine Clearance 23 mL/min (70-130); Calcium 9.8 mg/dL (7.8-10.44); Carbon Dioxide 31 mmol/L (23-31); Chloride 92 mmol/L (98-107); Estimated GFR 29; Globulin 2.5 g/dL (2.4-3.5); Glucose 114 mg/dL (83-110); Potassium 4.5 mmol/L (3.5-5.1); Protein, Total 6.4 g/dL (5.8-8.1); Sodium 134 mmol/L (136-145)
[2024-09-11] MEDS: Furosemide 20 MG (2 mL) VIAL SLOW IVP SCH (22:17)
[2024-09-12 00:15] LABS: Lactic Acid 2.04 mmol/L (0.5-2.2)
[2024-09-12] MEDS ORDERED: Glucagon 1 MG/ML KIT IM PRN (01:31)
[2024-09-12] MEDS ORDERED: Dextrose 50% Abboject 50 ML SYRINGE SLOW IVP PRN (01:31)
[2024-09-12] MEDS ORDERED: Dextrose 5% in Water 1,000 ML IV PRN (01:31)
[2024-09-12 05:50] LABS: #Basophils 0.06 10x3/uL (0.0-0.2); %Basophils 0.9 % (0.0-1.0); %Eosinophils 7.6 % (0.0-10.0); %Lymphocytes 10.4 % (21.0-51.0); %Monocytes 17.7 % (0.0-10.0); %Neutrophils 62.1 % (42.0-75.0); Hematocrit 28.3 % (36.0-47.0); Hemoglobin 8.8 g/dL (12.0-16.0); Mean Corpuscular HGB CONC 31.1 g/dL (32.0-36.0); Mean Corpuscular Hemoglobin 29.4 pg (27.0-31.0); Mean Corpuscular Volume 94.6 fL (78.0-98.0); Mean Platelet Volume 10.3 fL (7.4-10.4); Platelet Count 156 10x3/uL (130-400); RBC Distribution Width 20.1 % (11.5-14.5); Red Blood Cell (RBC) Count 2.99 mill/uL (4.20-5.40)
[2024-09-12] MEDS ORDERED: Furosemide 40 MG (4 mL) VIAL SLOW IVP SCH (06:00)
[2024-09-12 06:26] LABS: Complement-C3 62 mg/dL (Not Available); Complement-C4 16 mg/dL (Not Available)
[2024-09-12 06:32] LABS: Magnesium 1.9 mg/dL (1.6-2.6)
[2024-09-12 08:51] LABS: ALT (SGPT) 6 U/L (8-55); AST (SGOT) 61 U/L (5-34); Albumin 3.9 g/dL (3.4-4.8); Alkaline Phosphatase 40 U/L (40-110); Anion Gap 17 mmol/L (10-20); BUN (Urea Nitrogen) 21 mg/dL (9.8-20.1); Bilirubin, Total 0.8 mg/dL (0.2-1.2); Calc. Creatinine Clearance 23 mL/min (70-130); Calcium 9.7 mg/dL (7.8-10.44); Carbon Dioxide 31 mmol/L (23-31); Chloride 91 mmol/L (98-107); Estimated GFR 29; Globulin 1.3 g/dL (2.4-3.5); Glucose 73 mg/dL (83-110); Potassium 3.5 mmol/L (3.5-5.1); Protein, Total 5.2 g/dL (5.8-8.1); Sodium 135 mmol/L (136-145)
[2024-09-12] MEDS ORDERED: Torsemide 10 MG TAB PO SCH (09:00)
[2024-09-12] MEDS ORDERED: Piperacillin/Tazobactam 3.375 GM in Sodium Chloride 0.9% 100 ML IVPB SCH (09:15)
[2024-09-12] MEDS: Piperacillin/Tazobactam 3.375 GM in Sodium Chloride 0.9% 100 ML IVPB SCH ×2 (09:54→14:59)
[2024-09-12] MEDS: Acetaminophen 650 MG Suppository PR PRN (12:32)
[2024-09-12] MEDS: Albumin 25% 25 GM (100 mL) BOT IVPB SCH (14:03)
[2024-09-13 05:50] LABS: Hematocrit 29.2 % (36.0-47.0); Hemoglobin 9.1 g/dL (12.0-16.0); Mean Corpuscular HGB CONC 31.2 g/dL (32.0-36.0); Mean Corpuscular Hemoglobin 29.4 pg (27.0-31.0); Mean Corpuscular Volume 94.5 fL (78.0-98.0); Mean Platelet Volume 10.7 fL (7.4-10.4); Platelet Count 144 10x3/uL (130-400); RBC Distribution Width 20.1 % (11.5-14.5); Red Blood Cell (RBC) Count 3.09 mill/uL (4.20-5.40)
[2024-09-13 05:56] LABS: Magnesium 1.8 mg/dL (1.6-2.6)
[2024-09-13 07:29] LABS: ALT (SGPT) 5 U/L (8-55); AST (SGOT) 50 U/L (5-34); Albumin 4.3 g/dL (3.4-4.8); Alkaline Phosphatase 43 U/L (40-110); Anion Gap 15 mmol/L (10-20); BUN (Urea Nitrogen) 19 mg/dL (9.8-20.1); Bilirubin, Total 0.9 mg/dL (0.2-1.2); Calc. Creatinine Clearance 23 mL/min (70-130); Calcium 10.2 mg/dL (7.8-10.44); Carbon Dioxide 32 mmol/L (23-31); Chloride 91 mmol/L (98-107); Estimated GFR 29; Globulin 1.6 g/dL (2.4-3.5); Glucose 101 mg/dL (83-110); Potassium 3.1 mmol/L (3.5-5.1); Protein, Total 5.9 g/dL (5.8-8.1); Sodium 135 mmol/L (136-145)
[2024-09-13 08:11] LABS: Anisocytosis SLIGHT = 6-15 cells HPF (0-5); Band 15 % (5-11); Eosinophils 4 % (0-10); Hypochromia SLIGHT = 6-15 cells HPF (0-5); Lymphocytes 9 % (21-51); Metamyelocyte 1 % (0-0); Monocytes 9 % (0-10); Neutrophil 60 % (42-75); Platelet Adequacy Comment Platelets Normal; Polychromasia SLIGHT = 2-3 cells HPF (0-2)
[2024-09-13 10:39] LABS: Complement-C4 20 mg/dL (Not Available)
[2024-09-13] MEDS: Potassium Chloride 20 MEQ in Premix 1 BAG IVPB SCH (11:02)
[2024-09-13 11:54] LABS: ANA Symphony (Qualitative) Negative (Negative); ANA Symphony (Quantitative) 0.4 Ratio (< 0.7 Negative); EliA RAS New Method **** NEW METHOD ****; Mitochondrial Ab 0.8 U/mL (<4 Negative); Rheumatoid Factor IgA Antibody 5.3 IU/mL (<14 Negative); Rheumatoid Factor IgM Antibody 1.2 IU/mL (<3.5 Negative); Thyroid Peroxidase IgG Ab Less than 4.0 IU/mL (<25 Normal)
[2024-09-13 13:21] LABS: Cardiolipin IgA Ab 4.8 APL-U/mL (<14 Negative); Cardiolipin IgG Ab 1.2 GPL-U/mL (<10 Negative); Cardiolipin IgM Ab Less than 0.9 MPL-U/mL (<10 Negative); EliA APS New Method **** NEW METHOD ****; beta-2-Glycoprotein I IgA Ab 3.1 U/mL (<7 Negative); beta-2-Glycoprotein I IgG Ab 1.5 U/mL (<7 Negative); beta-2-Glycoprotein I IgM Abs Less than 2.4 U/mL (<7 Negative)
[2024-09-13] MEDS: Piperacillin/Tazobactam 3.375 GM in Sodium Chloride 0.9% 100 ML IVPB SCH (17:55)
[2024-09-14 06:39] LABS: #Basophils 0.05 10x3/uL (0.0-0.2); %Eosinophils 7.5 % (0.0-10.0); %Monocytes 18.8 % (0.0-10.0); %Neutrophils 59.7 % (42.0-75.0); Hematocrit 28.2 % (36.0-47.0); Hemoglobin 8.7 g/dL (12.0-16.0); Mean Corpuscular HGB CONC 30.9 g/dL (32.0-36.0); Mean Corpuscular Hemoglobin 29.2 pg (27.0-31.0); Mean Corpuscular Volume 94.6 fL (78.0-98.0); Mean Platelet Volume 10.3 fL (7.4-10.4); Platelet Count 145 10x3/uL (130-400); Red Blood Cell (RBC) Count 2.98 mill/uL (4.20-5.40)
[2024-09-14 06:56] LABS: Magnesium 1.7 mg/dL (1.6-2.6)
[2024-09-14 08:28] LABS: ALT (SGPT) 5 U/L (8-55); AST (SGOT) 60 U/L (5-34); Albumin 3.8 g/dL (3.4-4.8); Alkaline Phosphatase 58 U/L (40-110); Anion Gap 15 mmol/L (10-20); BUN (Urea Nitrogen) 19 mg/dL (9.8-20.1); Bilirubin, Total 0.7 mg/dL (0.2-1.2); Calc. Creatinine Clearance 23 mL/min (70-130); Calcium 11.2 mg/dL (7.8-10.44); Carbon Dioxide 30 mmol/L (23-31); Chloride 94 mmol/L (98-107); Estimated GFR 29; Globulin 1.9 g/dL (2.4-3.5); Glucose 107 mg/dL (83-110); Potassium 3.3 mmol/L (3.5-5.1); Protein, Total 5.7 g/dL (5.8-8.1); Sodium 136 mmol/L (136-145)
[2024-09-14] MEDS: Magnesium 2 GM/50 ML(in water) 2 GM in Premix 1 BAG IVPB SCH (08:52)
[2024-09-14] MEDS: Magnesium Oxide 400 MG TAB PO SCH (08:54)
[2024-09-14] MEDS: Potassium Chloride 20 MEQ in Premix 1 BAG IVPB SCH (12:31)
[2024-09-14] MEDS: Fluconazole In NaCl,Iso-Osm 100 MG in Admixture Fee 1 EACH IVPB SCH (14:25)
[2024-09-15 06:39] LABS: ALT (SGPT) 6 U/L (8-55); AST (SGOT) 62 U/L (5-34); Albumin 3.7 g/dL (3.4-4.8); Alkaline Phosphatase 54 U/L (40-110); Anion Gap 14 mmol/L (10-20); BUN (Urea Nitrogen) 22 mg/dL (9.8-20.1); Bilirubin, Total 0.6 mg/dL (0.2-1.2); Calc. Creatinine Clearance 0 mL/min (70-130); Calcium 11.2 mg/dL (7.8-10.44); Carbon Dioxide 27 mmol/L (23-31); Chloride 96 mmol/L (98-107); Estimated GFR 30; Globulin 2.1 g/dL (2.4-3.5); Glucose 106 mg/dL (83-110); Potassium 4.3 mmol/L (3.5-5.1); Protein, Total 5.8 g/dL (5.8-8.1); Sodium 133 mmol/L (136-145)
[2024-09-15 06:43] LABS: #Basophils 0.06 10x3/uL (0.0-0.2); %Basophils 1.1 % (0.0-1.0); %Eosinophils 8.8 % (0.0-10.0); %Lymphocytes 10.9 % (21.0-51.0); %Monocytes 18.9 % (0.0-10.0); %Neutrophils 59.3 % (42.0-75.0); Hematocrit 29.3 % (36.0-47.0); Hemoglobin 9.1 g/dL (12.0-16.0); Mean Corpuscular HGB CONC 31.1 g/dL (32.0-36.0); Mean Corpuscular Hemoglobin 29.8 pg (27.0-31.0); Mean Corpuscular Volume 96.1 fL (78.0-98.0); Mean Platelet Volume 10.6 fL (7.4-10.4); Platelet Count 129 10x3/uL (130-400); RBC Distribution Width 20.1 % (11.5-14.5); Red Blood Cell (RBC) Count 3.05 mill/uL (4.20-5.40)
[2024-09-15] MEDS ORDERED: Guaifenesin DM 100-10/5 ML UDCUP PER TUBE PRN (09:31)
[2024-09-15] MEDS ORDERED: Senokot S 8.6-50 MG TAB PER TUBE PRN (09:33)
[2024-09-15] MEDS: Sodium Chloride 0.9% 1,000 ML IV SCH (10:00)
[2024-09-15] MEDS: Magnesium Oxide 400 MG TAB PER TUBE SCH ×2 (10:01→20:09)
[2024-09-15] MEDS: Cyanocobalamin (Vitamin B-12) 1,000 MCG TAB PER TUBE SCH (10:01)
[2024-09-15] MEDS: Apixaban 2.5 MG TAB PER TUBE SCH ×2 (10:01→20:08)
[2024-09-15] MEDS: Saccharomyces boulardii 250 MG CAP PER TUBE SCH (10:02)
[2024-09-15] MEDS: Metoprolol Tartrate 50 MG TAB PER TUBE SCH ×2 (10:09→20:09)
[2024-09-15] MEDS: Venlafaxine 75 MG TAB PER TUBE SCH (10:09)
[2024-09-15] MEDS: Pantoprazole 40 MG VIAL IVP SCH ×2 (10:09→20:10)
[2024-09-15] MEDS: Gabapentin 100 MG CAP PER TUBE SCH (20:09)
[2024-09-15] MEDS: Acetaminophen 325 MG TAB PER TUBE PRN (20:10)
[2024-09-15] MEDS ORDERED: Gabapentin 100 MG CAP PO SCH (21:00)
[2024-09-16 05:33] LABS: #Basophils 0.06 10x3/uL (0.0-0.2); %Basophils 1.1 % (0.0-1.0); %Eosinophils 7.5 % (0.0-10.0); %Lymphocytes 11.7 % (21.0-51.0); %Monocytes 19.4 % (0.0-10.0); %Neutrophils 58.9 % (42.0-75.0); Hematocrit 32.4 % (36.0-47.0); Mean Corpuscular HGB CONC 30.9 g/dL (32.0-36.0); Mean Corpuscular Volume 93.9 fL (78.0-98.0); Mean Platelet Volume 10.3 fL (7.4-10.4); Platelet Count 121 10x3/uL (130-400); RBC Distribution Width 19.9 % (11.5-14.5); Red Blood Cell (RBC) Count 3.45 mill/uL (4.20-5.40)
[2024-09-16 06:02] LABS: Magnesium 1.9 mg/dL (1.6-2.6)
[2024-09-16] MEDS: Saccharomyces boulardii 250 MG CAP PER TUBE SCH (08:42)
[2024-09-16] MEDS: Cyanocobalamin (Vitamin B-12) 1,000 MCG TAB PER TUBE SCH (08:42)
[2024-09-16] MEDS: Morphine 2 MG/ML VIAL SLOW IVP PRN (21:01)
[2024-09-17 01:16] VITALS: BP 154/81; TEMP 98.9
[2024-09-17] MEDS ORDERED: Multivit, Therapeutic 1 TAB PER TUBE SCH (09:00)
[2024-09-19 18:12] LABS: DRVVT Confirmation 86.4 sec (.)
== END 2024-09-17 05:30 | disposition expired | DRG 682 ==
LOC: T4-B 10:47
PROVIDERS: ADMIT Hospitalist; ATTEND Hospitalist
PROC: 30233J1 Transfusion of Nonautologous Serum Albumin into Peripheral Vein, Percutaneous Approach (ICD-10-PCS; principal; 2024-09-03)
PROC: 3E03329 Introduction of Other Anti-infective into Peripheral Vein, Percutaneous Approach (ICD-10-PCS; 2024-09-12)
DX: N17.9 Acute kidney failure, unspecified (principal); G93.41 Metabolic encephalopathy; J96.21 Acute and chronic respiratory failure with hypoxia; E87.21 Acute metabolic acidosis; N39.0 Urinary tract infection, site not specified; E87.1 Hypo-osmolality and hyponatremia; N18.30 Chronic kidney disease, stage 3 unspecified; M19.90 Unspecified osteoarthritis, unspecified site; G89.29 Other chronic pain; J10.1 Influenza due to other identified influenza virus with other respiratory manifestations; S00.83XA Contusion of other part of head, initial encounter; Z66 Do not resuscitate; Z51.5 Encounter for palliative care; M43.13 Spondylolisthesis, cervicothoracic region; R29.6 Repeated falls; E86.0 Dehydration; I12.9 Hypertensive chronic kidney disease with stage 1 through stage 4 chronic kidney disease, or unspecified chronic kidney disease; R13.12 Dysphagia, oropharyngeal phase; I48.0 Paroxysmal atrial fibrillation; D50.9 Iron deficiency anemia, unspecified; D63.1 Anemia in chronic kidney disease; E87.6 Hypokalemia; N28.1 Cyst of kidney, acquired; R76.0 Raised antibody titer; E83.42 Hypomagnesemia; R62.7 Adult failure to thrive; E83.52 Hypercalcemia; E87.70 Fluid overload, unspecified; E16.1 Other hypoglycemia; R31.9 Hematuria, unspecified; K90.0 Celiac disease; B37.9 Candidiasis, unspecified; Z68.26 Body mass index [BMI] 26.0-26.9, adult; Z98.890 Other specified postprocedural states; Z90.49 Acquired absence of other specified parts of digestive tract; Z90.710 Acquired absence of both cervix and uterus; Z79.899 Other long term (current) drug therapy; Z79.01 Long term (current) use of anticoagulants; Z99.81 Dependence on supplemental oxygen; Z91.018 Allergy to other foods; Z88.8 Allergy status to other drugs, medicaments and biological substances; M54.9 Dorsalgia, unspecified; Z91.040 Latex allergy status
CPT/HCPCS: 36415; 36416; 70450; 70551; 71045; 71250; 74018; 74177; 76705; 80048; 80053; 80069; 81001; 82040; 82140; 82533; 82550; 82570; 82607; 82728; 83516; 83520; 83540; 83550; 83605; 83735; 83880; 84100; 84145; 84156; 84300; 84540; 85025; 85598; 85610; 85613; 85730; 86038; 86141; 86146; 86147; 86160; 86200; 86225; 86376; 87077; 87086; J1450; J1644; J1940; J2272; J2470; J2543; J3475; J3480; J7030; J7070; J7999; P9047